=== PATIENT | female | born 1965 | race Caucasian/White ===

== ENCOUNTER 2020-03-05 18:03 | Emergency (ER) | payer BC, MEDICARE ==
[2020-03-05] MEDS ORDERED: Famotidine/PF 20 mg/2ml Vial ONE (18:12)
[2020-03-05] MEDS ORDERED: methylPREDNISolone Sod Succ/PF 125 MG/2 ML VIAL ONE (18:12)
== END 2020-03-05 20:55 | disposition home or self-care (01) ==
LOC: NAV ERS 18:03
DX: T63.461A Toxic effect of venom of wasps, accidental (unintentional), initial encounter (principal)
CPT/HCPCS: 94760; 96374; 96375; J2930; S0028